=== PATIENT | female | born 1965 | race Native Hawaiian/Other Pacific Islander ===

== ENCOUNTER → 2019-06-25 | Outpatient (CLI) | payer BC ==
--- NOTE | 2019-06-25 09:58 | BD ---
EXAMINATION TYPE: Axial Bone Density DATE OF EXAM: 06/25/2019 COMPARISON: 2003 CLINICAL HISTORY: osteoporosis Height: 5'1 Weight: 102 FRAX RISK QUESTIONS: History of Fracture in Adulthood: y Secondary Osteoporosis: Rheumatoid Arthritis: y RISK FACTORS HISTORY OF: Diet low in dairy products/other sources of calcium: y Postmenopausal woman: y MEDICATIONS: Additional Medications: Additional History: EXAM MEASUREMENTS: Bone mineral densitometry was performed using the [employer]. Bone mineral density as measured about the Lumbar spine is: ----- L1-L4(G/cm2): 0.850 T Score Values are as follows: ----- L2: -2.4 ----- L3: -2.8 ----- L4: -3.5 ----- L1-L4: -2.8 Bone mineral density has: Decreased -29.3% since study of: 02/18/2004 Bone mineral density about the R hip (g/cm2): 0.674 Bone mineral density about the L hip (g/cm2): 0.785 T Score values are as follows: -----R Neck: -2.6 -----L Neck:-1.8 -----R Total: -2.6 -----L Total: -2.1 Bone mineral density has: Decreased -25.5% since study of: 02/18/2004 IMPRESSION: Osteoporosis (T Score less than -2.5). There is increased fracture risk and therapy is usually indicated based on age. Re-Screen 1-2 years. NOTE: T-SCORE=SD OF THE YOUNG ADULT MEAN.
== END | disposition home or self-care (01) ==
LOC: RADBDWWP 08:08
PROVIDERS: ATTEND Internal Medicine Rheumatology
DX: M81.8 Other osteoporosis without current pathological fracture (principal)
CPT/HCPCS: 77080